=== PATIENT | male | born 1995 | race Caucasian/White ===

== ENCOUNTER 2016-11-03 17:32 | Inpatient (IN) | payer OTHER ==
[~2016-11-03] VITALS: Ht 180.3 cm; Wt 79.9 kg
[2016-11-03 19:40] VITALS: BP 108/55; PULSE 66; RESP 18; TEMP 98.1; O2SAT 100
--- NOTE | 2016-11-03 20:21 | PD ---
HPI Chief Complaint: Suicide Ideation/Attempt Time Seen by Provider: 20:17 Travel History International Travel<30 days: No Contact w/Intl Traveler<30days: No Traveled to known affect area: No History of Present Illness HPI Patient comes in under a [place] act by police after trying to commit suicide. Patient states that he been drinking and he was wanting to end his life for "multiple reasons". Patient states that he's had thoughts of this in the past but has not actually tried before. Patient states he tried today by tying a rope around his neck and the opposite end to a doorknob. Patient states his mother found him which caused him to not be able to . Patient denies any medical complaints at this time. Denies any chest pain, shortness breath, nausea, vomiting, neck pain, fevers, abdominal pain, or back pain. Patient states he is on lithium as prescribed by Calderon Rangel for depression and suicidal ideations. Denies anything making this better or worse. PFSH Past Medical History Depression: Yes Social History Alcohol Use: Yes Tobacco Use: Yes Substance Use: Yes (marijuana) Review of Systems Except as stated in HPI: all other systems reviewed are Neg Physical Exam Narrative GENERAL: Well-developed, well nourished, in no acute distress, and non-ill appearing. SKIN: Focused skin assessment warm and dry. No rope honeycutt noted on neck. HEAD: Atraumatic. Normocephalic. EYES: Pupils equal and round. EOMI. No scleral icterus. No injection or drainage. ENT: No nasal bleeding or discharge. Mucous membranes pink and moist. NECK: Trachea midline. Supple. No nuclear rigidity. CARDIOVASCULAR: Regular rate and rhythm. No murmur appreciated. RESPIRATORY: No accessory muscle use. No respiratory distress. Clear to auscultation. Breath sounds equal bilaterally. MUSCULOSKELETAL: No obvious deformities. No clubbing. No cyanosis. No edema. Full range of motion. NEUROLOGICAL: Awake and alert. No obvious cranial nerve deficits. Motor grossly within normal limits. Normal speech. PSYCHIATRIC: Appropriate mood and affect; insight and judgment normal. Data Data Orders Orders Complete Blood Count With Diff (11/03/16 20:00) Psych Screen (11/03/16 20:00) Drug Screen, Random Urine (11/03/16 20:03) Alcohol (Ethanol) (11/03/16 20:03) Salicylates (Aspirin) (11/03/16 20:03) Tylenol (Acetaminophen) (11/03/16 20:03) [place] (Li) (11/03/16 20:16) Comprehensive Metabolic Panel (11/03/16 20:42) Labs Laboratory Tests Test 11/03/16 20:42 11/03/16 20:50 Blood Urea Nitrogen 7 MG/DL Creatinine 1.00 MG/DL Random Glucose 78 MG/DL Total Protein 7.0 GM/DL Albumin 3.9 GM/DL Calcium Level 8.7 MG/DL Alkaline Phosphatase 108 U/L Aspartate Amino Transf (AST/SGOT) 15 U/L Alanine Aminotransferase (ALT/SGPT) 12 U/L Total Bilirubin 0.7 MG/DL Sodium Level 140 MEQ/L Potassium Level 3.5 MEQ/L Chloride Level 107 MEQ/L Carbon Dioxide Level 24.2 MEQ/L Anion Gap 9 MEQ/L Estimat Glomerular Filtration Rate 93 ML/MIN Salicylates Level 2.9 MG/DL Urine Opiates Screen NEG Acetaminophen Level LESS THAN 2.0 MCG/ML Urine Barbiturates Screen NEG Urine Amphetamines Screen NEG Urine Benzodiazepines Screen NEG [place] Level 0.2 MEQ/L Urine Cocaine Screen NEG Urine Cannabinoids Screen NEG Ethyl Alcohol Level 32 MG/DL White Blood Count 9.1 TH/MM3 Red Blood Count 4.24 MIL/MM3 Hemoglobin 14.3 GM/DL Hematocrit 41.9 % Mean Corpuscular Volume 98.8 FL Mean Corpuscular Hemoglobin 33.8 PG Mean Corpuscular Hemoglobin Concent 34.2 % Red Cell Distribution Width 12.7 % Platelet Count 198 TH/MM3 Mean Platelet Volume 9.4 FL Neutrophils (%) (Auto) 66.6 % Lymphocytes (%) (Auto) 24.3 % Monocytes (%) (Auto) 6.2 % Eosinophils (%) (Auto) 2.3 % Basophils (%) (Auto) 0.6 % Neutrophils # (Auto) 6.1 TH/MM3 Lymphocytes # (Auto) 2.2 TH/MM3 Monocytes # (Auto) 0.6 TH/MM3 Eosinophils # (Auto) 0.2 TH/MM3 Basophils # (Auto) 0.1 TH/MM3 CBC Comment DIFF FINAL Differential Comment MDM Medical Decision Making Medical Screen Exam Complete: Yes Emergency Medical Condition: Yes Differential Diagnosis Suicidal, homicidal, depression, lithium toxicity, alcohol intoxication, substance abuse, other Narrative Course Patient was seen and examined. Labs were obtained and reviewed. Patient medically cleared for further treatment and evaluation by psych. Final disposition per psych. Diagnosis Primary Impression: Suicidal behavior with attempted self-injury Condition: Stable Kieran Thompson Nov 03, 2016 20:21
[2016-11-03 21:22] LABS: AUTOMATED NEUTROPHIL # 6.1 TH/MM3 (1.8-7.7); BASOPHIL # 0.1 TH/MM3 (0-0.2); BASOPHIL % 0.6 % (0.0-2.0); EOSINOPHIL # 0.2 TH/MM3 (0-0.4); EOSINOPHIL % 2.3 % (0.0-4.0); HEMATOCRIT 41.9 % (39.0-51.0); HEMO FLAGS DIFF FINAL; LYMPH % 24.3 % (9.0-44.0); LYMPHOCYTE # 2.2 TH/MM3 (1.0-4.8); MEAN CELL VOLUME 98.8 FL (80.0-100.0); MEAN CORPUSCULAR HEMOGLOBIN 33.8 PG (27.0-34.0); MEAN CORPUSCULAR HGB CONC 34.2 % (32.0-36.0); MONO % 6.2 % (0.0-8.0); NEUT % 66.6 % (16.0-70.0); PLATELET COUNT 198 TH/MM3 (150-450); RED BLOOD COUNT 4.24 MIL/MM3 (4.50-5.90); RED CELL DISTRIBUTION WIDTH 12.7 % (11.6-17.2); WHITE BLOOD COUNT 9.1 TH/MM3 (4.0-11.0)
[2016-11-03 21:46] LABS: ANION GAP 9 MEQ/L (5-15); AST (GOT) 15 U/L (15-37); BICARBONATE 24.2 MEQ/L (21.0-32.0); BLOOD UREA NITROGEN 7 MG/DL (7-18); CHLORIDE 107 MEQ/L (98-107); GLOMERULAR FILTRATION RATE 93 ML/MIN (>89); POTASSIUM 3.5 MEQ/L (3.5-5.1); SODIUM (NA) 140 MEQ/L (136-145)
[2016-11-03 21:47] LABS: ALT (GPT) 12 U/L (12-78)
[2016-11-03 21:49] LABS: ACETAMINOPHEN LESS THAN 2.0 MCG/ML (10.0-30.0); ALKALINE PHOSPHATASE 108 U/L (45-117); TOTAL BILIRUBIN ADULT 0.7 MG/DL (0.2-1.0)
[2016-11-03 21:50] LABS: ALCOHOL 32 MG/DL (0-5)
[2016-11-04 07:10] VITALS: BP 110/78; PULSE 69; RESP 17; TEMP 97.9; O2SAT 99
[2016-11-04] MEDS ORDERED: LITH300C2 PO (07:38)
[2016-11-04 13:03] VITALS: BP 110/83; TEMP 97.8
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
[2016-11-04] MEDS ORDERED: MAGNESIUM HYDROXIDE SUSP 30 ML CUP PO PRN (15:00)
[2016-11-04] MEDS ORDERED: ACETAMINOPHEN 325 MG TAB PO PRN (15:00)
[2016-11-04] MEDS ORDERED: ALUMINUM/MAGNESIUM/SIMETH 30 ML CUP PO PRN (15:00)
[2016-11-04] MEDS: NICOTINE 21 MG/24 HR PATCH T-DERMAL SCH (16:00)
[2016-11-04 18:28] VITALS: BP 126/70; PULSE 63; TEMP 98.4; O2SAT 99
[2016-11-04] MEDS: LITHIUM CARBONATE 300 MG TAB PO SCH (18:59)
[2016-11-04] MEDS: hydrOXYzine HCL 50 MG TAB PO PRN (21:42)
[2016-11-05 04:44] VITALS: BP 110/58; PULSE 76; RESP 16; TEMP 98.2; O2SAT 97
[2016-11-05] MEDS: REMOVE OLD PATCH T-DERMAL SCH (09:00)
[2016-11-05] MEDS: PALIPERIDONE ER 6 MG TAB PO SCH (09:20)
[2016-11-05] MEDS: LITHIUM CARBONATE 300 MG TAB PO SCH ×3 (09:20→17:44)
[2016-11-05] MEDS: NICOTINE 21 MG/24 HR PATCH T-DERMAL SCH (09:20)
--- NOTE | 2016-11-05 09:51 | EKG ---
Date Performed: 11/05/2016 Time Performed: 09:24:43 PTAGE: 21 years EKG: SINUS BRADYCARDIA BORDERLINE ECG NO PREVIOUS TRACING DOCTOR: Efra Gallegos Interpretating Date/Time 11/05/2016 09:49:34
[2016-11-05 11:50] LABS: HDL CHOLESTEROL 56.3 MG/DL (40.0-60.0); LDL CHOLESTEROL 51 MG/DL (0-99)
--- NOTE | 2016-11-05 11:58 | HHI.PYPN ---
Subjective Remarks Patient was seen and case discussed with nursing. Patient is pleasant and cooperative with exam. Spending his time reading. Patient describes suicidal ideation for the past couple of months before admission. Patient says his recent stressors including a girl he liked put him over the edge and he had his suicide attempt. Patient continues to be depressed, feeling hopeless. He has fleeting suicidal thoughts with no intent, ideation, or plan. He is out for meals, and sleeping well. No psychomotor retardation, affect is constricted. Tolerating his medications well Objective Alert: Yes [place]: Person, Place, Date, Situation Mood: Depressed Affect: Restricted Memory Intact: Immediate (intact) Hallucinations: Other (denies) Delusions: No Delusion Type: Other (denies) Suicidal: Intent (denies), Plan (denies), Ideation (fleeting) Homicidal: Ideation (denies) Insight/Judgment Fair Labs Test 11/05/16 10:52 Triglycerides Level 189 MG/DL Cholesterol Level 145 MG/DL LDL Cholesterol 51 MG/DL HDL Cholesterol 56.3 MG/DL Cholesterol/HDL Ratio 2.57 RATIO Thyroid Stimulating Hormone 3rd Gen 0.965 uIU/ML Valproic Acid (Depakene) Level LESS THAN 3 MCG/ML Vitals/IOs Vital Signs Date Time Temp Pulse Resp B/P (MAP) Pulse Ox O2 Delivery O2 Flow Rate FiO2 11/05/16 04:44 98.2 76 16 110/58 (75) 97 11/04/16 07:10 Room Air Assessment & Plan Problem List: (1) Bipolar disorder ICD Codes: F31.9 - Bipolar disorder, unspecified Assessment & Plan Transfer patient to 2700 unit. [place] level is low, recheck in the couple days and continue titration Justification for Cont. Inpt. Patient will decompensate in a less restrictive setting Alexandro Wiggins DO Nov 05, 2016 11:58
[2016-11-05 18:00] VITALS: BP 133/61; PULSE 71; RESP 18; TEMP 99.2
[2016-11-05] MEDS: hydrOXYzine HCL 50 MG TAB PO PRN (20:15)
[2016-11-06 05:42] VITALS: BP 114/70; PULSE 65; RESP 16; TEMP 97.6; O2SAT 99
[2016-11-06] MEDS: REMOVE OLD PATCH T-DERMAL SCH (08:22)
[2016-11-06] MEDS: NICOTINE 21 MG/24 HR PATCH T-DERMAL SCH (08:22)
[2016-11-06] MEDS: LITHIUM CARBONATE 300 MG TAB PO SCH ×3 (08:23→17:52)
[2016-11-06] MEDS: PALIPERIDONE ER 6 MG TAB PO SCH (08:23)
[2016-11-06 15:46] VITALS: BP 118/65; PULSE 75; RESP 18; TEMP 98.1; O2SAT 100
[2016-11-06 16:33] LABS: HEMOGLOBIN A1a 1.1 %; HEMOGLOBIN A1b 0.7 %; HEMOGLOBIN Ao 86.4 %; HEMOGLOBIN LA1C 1.8 %; HEMOGLOBIN P3 3.3 %
--- NOTE | 2016-11-06 17:38 | HHI.PYPN ---
Subjective Remarks Patient seen in day room with nurse Flakita, chart reviewed, patient compliant medication. Patient now denies suicidality but acknowledges continued depression. This time he also denies voices or visions. He states he would like to be on an antidepressant though considering the chronicity of his past depressions and suicidal attempts. We'll start patient on Zoloft 25 mg daily Review of Systems Except as stated in HPI: all other systems reviewed are Neg Objective Alert: Yes [place]: Person, Place, Date, Situation Mood: Depressed Affect: Restricted Memory Intact: Immediate (intact) Hallucinations: Other (denies) Delusions: No Delusion Type: Other (denies) Suicidal: Intent (denies), Plan (denies), Ideation (fleeting) Homicidal: Ideation (denies) Insight/Judgment Poor Vitals/IOs Vital Signs Date Time Temp Pulse Resp B/P (MAP) Pulse Ox O2 Delivery O2 Flow Rate FiO2 11/06/16 15:46 98.1 75 18 118/65 (82) 100 11/04/16 07:10 Room Air Assessment & Plan Problem List: (1) Bipolar disorder ICD Codes: F31.9 - Bipolar disorder, unspecified Status: Acute Assessment & Plan Estimated LOS: days patient continues depressed though at this time he is not psychotic. Denying voices or visions. Did request an antidepressant will start patient on Zoloft 25 mg daily Justification for Cont. Inpt. At this time patient decompensated placed in a lower level of care Problem Qualifiers (1) Bipolar disorder: Qualified Codes: F31.4 - Bipolar disorder, current episode depressed, severe, without psychotic features Andreas Garcia MD Nov 06, 2016 17:38
[2016-11-06] MEDS ORDERED: PILL SPLITTER OTHER PRN (17:45)
[2016-11-06] MEDS: hydrOXYzine HCL 50 MG TAB PO PRN (20:38)
[2016-11-07 06:09] VITALS: BP 131/66; PULSE 69; RESP 16; TEMP 97.8; O2SAT 99
[2016-11-07] MEDS: PALIPERIDONE ER 6 MG TAB PO SCH (08:27)
[2016-11-07] MEDS: SERTRALINE HCL 50 MG TAB PO SCH (08:27)
[2016-11-07] MEDS: LITHIUM CARBONATE 300 MG TAB PO SCH ×3 (08:27→17:40)
[2016-11-07] MEDS: NICOTINE 21 MG/24 HR PATCH T-DERMAL SCH (08:28)
[2016-11-07] MEDS: REMOVE OLD PATCH T-DERMAL SCH (09:00)
--- NOTE | 2016-11-07 10:17 | HHI.PYPN ---
Subjective Remarks Patient seen in his room with counselor Phil, chart reviewed. Patient remains depressed though today he denying suicidality. I feel this is also response to the safety of the milieu. But a question his ability to remain safe in the community at this time. He denies voices or visions. Behaviors first dose of Zoloft today we'll transfer patient to 2600 today Review of Systems Except as stated in HPI: all other systems reviewed are Neg Objective Alert: Yes [place]: Person, Place, Date, Situation Mood: Depressed Affect: Restricted Memory Intact: Immediate (intact) Hallucinations: Other (denies) Delusions: No Delusion Type: Other (denies) Suicidal: Intent (denies), Plan (denies), Ideation (fleeting) Homicidal: Ideation (denies) Insight/Judgment Poor Vitals/IOs Vital Signs Date Time Temp Pulse Resp B/P (MAP) Pulse Ox O2 Delivery O2 Flow Rate FiO2 11/07/16 06:09 97.8 69 16 131/66 (87) 99 11/04/16 07:10 Room Air Assessment & Plan Problem List: (1) Bipolar disorder ICD Codes: F31.9 - Bipolar disorder, unspecified Status: Acute Assessment & Plan Estimated LOS: days patient continues depressed well denies suicidality at this time I feel but still present if prematurely discharged. For now continue treatment Justification for Cont. Inpt. At this time patient will decompensate if placed in the lower level of care Discharge Planning To be determined Problem Qualifiers (1) Bipolar disorder: Qualified Codes: F31.4 - Bipolar disorder, current episode depressed, severe, without psychotic features Andreas Garcia MD Nov 07, 2016 10:17
[2016-11-07 18:11] VITALS: BP 151/85; PULSE 58; RESP 17; TEMP 98.1; O2SAT 98
[2016-11-07] MEDS: hydrOXYzine HCL 50 MG TAB PO PRN (21:09)
[2016-11-08 05:31] VITALS: BP 133/64; PULSE 75; RESP 18; TEMP 97.8; O2SAT 95
[2016-11-08] MEDS: NICOTINE 21 MG/24 HR PATCH T-DERMAL SCH (08:41)
[2016-11-08] MEDS: REMOVE OLD PATCH T-DERMAL SCH (08:42)
[2016-11-08] MEDS: SERTRALINE HCL 50 MG TAB PO SCH (08:43)
[2016-11-08] MEDS: LITHIUM CARBONATE 300 MG TAB PO SCH ×3 (08:43→17:44)
[2016-11-08] MEDS: PALIPERIDONE ER 6 MG TAB PO SCH (08:44)
--- NOTE | 2016-11-08 12:52 | HHI.PYPN ---
Subjective Remarks Patient seen in [place] with floor staff, chart review, patient compliant medication. Patient states she is feeling better today, slept better last night. Today he has better eye contact more color in his face. He does denies suicidality today. For now continue treatment Review of Systems Except as stated in HPI: all other systems reviewed are Neg Objective Alert: Yes [place]: Person, Place, Date, Situation Mood: Depressed Affect: Restricted Memory Intact: Immediate (intact) Hallucinations: Other (denies) Delusions: No Delusion Type: Other (denies) Suicidal: Intent (denies), Plan (denies), Ideation (fleeting) Homicidal: Ideation (denies) Insight/Judgment Fair Vitals/IOs Vital Signs Date Time Temp Pulse Resp B/P (MAP) Pulse Ox O2 Delivery O2 Flow Rate FiO2 11/08/16 05:31 97.8 75 18 133/64 (87) 95 11/04/16 07:10 Room Air Assessment & Plan Problem List: (1) Bipolar disorder ICD Codes: F31.9 - Bipolar disorder, unspecified Status: Acute Assessment & Plan Estimated LOS: days patient showing some mild improvement in his depression. Denies specific suicidality today so sleep is somewhat better also. Justification for Cont. Inpt. Distant patient will decompensate the placed in a lower level of care Discharge Planning To be determined Problem Qualifiers (1) Bipolar disorder: Qualified Codes: F31.4 - Bipolar disorder, current episode depressed, severe, without psychotic features Andreas Garcia MD Nov 08, 2016 12:52
[2016-11-08 16:59] VITALS: BP 116/68; PULSE 82; RESP 16; TEMP 98; O2SAT 98
[2016-11-08] MEDS: hydrOXYzine HCL 50 MG TAB PO PRN (20:21)
[2016-11-09 05:35] VITALS: BP 116/77; PULSE 71; RESP 16; TEMP 97.6
[2016-11-09] MEDS: REMOVE OLD PATCH T-DERMAL SCH (09:00)
[2016-11-09] MEDS: LITHIUM CARBONATE 300 MG TAB PO SCH ×3 (09:24→18:40)
[2016-11-09] MEDS: SERTRALINE HCL 50 MG TAB PO SCH (09:24)
[2016-11-09] MEDS: NICOTINE 21 MG/24 HR PATCH T-DERMAL SCH (09:25)
[2016-11-09] MEDS: PALIPERIDONE ER 6 MG TAB PO SCH ×2 (10:06→20:37)
--- NOTE | 2016-11-09 13:02 | HHI.PYPN ---
Subjective Remarks Patient seen in his room with nurse ludwin Sarabia complains of poor sleep last night. He also is compliant with medications. We'll need to recheck lithium blood level in a.m. We'll switch Inve[place] to at bedtime. Patient states has not talked with his family at. Review of Systems Except as stated in HPI: all other systems reviewed are Neg Mental Status Examination Consciousness: Alert Appearance: Appropriate Speech: Unremarkable Orientation: x3 Memory: Unremarkable Thought Content: Unremarkable Thought Associations: Intact Language: Other (no problems) Fund of Knowledge: Average Hallucination Type: None Attention and Concentration: Good Suicidal Ideation: No Previous Suicide Attempts: Yes Homicidal Ideation: No Previous Homicide Attempts: No Insight: Fair Judgment: Adequate Affect: Other (good range and intensity) Mood: Euthymic (to mildly dysphoric) Motor Activity: Normal gait Results Vitals/IOs Vital Signs Date Time Temp Pulse Resp B/P (MAP) Pulse Ox O2 Delivery O2 Flow Rate FiO2 11/09/16 05:35 97.6 71 16 116/77 (90) 11/08/16 16:59 98 Assessment & Plan Problem List: (1) Bipolar disorder ICD Codes: F31.9 - Bipolar disorder, unspecified Status: Acute Assessment & Plan Estimated LOS: days patient continues depressed with sleep issues, will suicidality appears to be soft to medication adjustments above Justification for Cont. Inpt. At this time patient will decompensate the placed in a lower level of care Discharge Planning To be determined Problem Qualifiers (1) Bipolar disorder: Qualified Codes: F31.4 - Bipolar disorder, current episode depressed, severe, without psychotic features Andreas Garcia MD Nov 09, 2016 13:02
[2016-11-09 18:22] VITALS: BP 127/73; PULSE 70; RESP 16; TEMP 98.3; O2SAT 99
[2016-11-09] MEDS: hydrOXYzine HCL 50 MG TAB PO PRN (21:49)
[2016-11-10 05:59] VITALS: BP 140/71; PULSE 79; RESP 16; TEMP 97.6; O2SAT 97
[2016-11-10] MEDS: REMOVE OLD PATCH T-DERMAL SCH (09:00)
[2016-11-10] MEDS: SERTRALINE HCL 50 MG TAB PO SCH (09:15)
[2016-11-10] MEDS: NICOTINE 21 MG/24 HR PATCH T-DERMAL SCH (09:15)
[2016-11-10] MEDS: LITHIUM CARBONATE 300 MG TAB PO SCH ×3 (09:15→21:19)
--- NOTE | 2016-11-10 14:06 | HHI.PYPN ---
Subjective Remarks Patient seen with nurse No, chart review, patient compliant medications. Patients lithium level today is 0.4 on 300 mg 3 times a day, will increase to 600 mg twice a day check level on 11/13. Patient does denies suicidality at the present time, does deny voices. States he did have fairly good conversation with family. For now continue treatment Chief Complaint: patient's really depressed with plan to hang himself Review of Systems Except as stated in HPI: all other systems reviewed are Neg Mental Status Examination Appearance: Appropriate Consciousness: Alert Orientation: x4 Motor Activity: Normal gait Speech: Unremarkable Language: Adequate Fund of Knowledge: Adequate Attention and Concentration: Other (fair) Memory: Unremarkable Mood: Sad Affect: Other (slight decrease range of motion intensity) Thought Process & Associations: Intact Thought Content: Appropriate Hallucination Type: None Delusion Type: None Suicidal Ideation: No (denies at this time) Suicidal Plan: No Suicidal Intention: No Homicidal Ideation: No Homicidal Plan: No Insight: Fair Judgment: Adequate Results Labs Test 11/10/16 07:16 [place] Level 0.4 MEQ/L Vitals/IOs Vital Signs Date Time Temp Pulse Resp B/P (MAP) Pulse Ox O2 Delivery O2 Flow Rate FiO2 11/10/16 05:59 97.6 79 16 140/71 (94) 97 Assessment & Plan Problem List: (1) Bipolar disorder ICD Codes: F31.9 - Bipolar disorder, unspecified Status: Acute Assessment & Plan Estimated LOS: days patient depression is slowly lifting, he is vague about suicidality at this time. She medication adjustments above Justification for Cont. Inpt. At this time patient will decompensate with placed a lower level of care Discharge Planning Continue lithium management of adjustment, once patient stabilizes would return to his home Problem Qualifiers (1) Bipolar disorder: Qualified Codes: F31.4 - Bipolar disorder, current episode depressed, severe, without psychotic features Andreas Garcia MD Nov 10, 2016 14:06
[2016-11-10 18:00] VITALS: BP 130/79; PULSE 75; RESP 18; TEMP 98.5; O2SAT 99
[2016-11-10] MEDS: PALIPERIDONE ER 6 MG TAB PO SCH (21:19)
[2016-11-10] MEDS: hydrOXYzine HCL 50 MG TAB PO PRN (22:06)
[2016-11-11 06:05] VITALS: BP 134/77; PULSE 74; RESP 18; TEMP 98.2; O2SAT 97
[2016-11-11] MEDS: REMOVE OLD PATCH T-DERMAL SCH (09:00)
[2016-11-11] MEDS: NICOTINE 21 MG/24 HR PATCH T-DERMAL SCH (09:48)
[2016-11-11] MEDS: LITHIUM CARBONATE 300 MG TAB PO SCH ×2 (09:49→22:15)
[2016-11-11] MEDS: SERTRALINE HCL 50 MG TAB PO SCH (09:49)
--- NOTE | 2016-11-11 14:17 | HHI.PYPN ---
Subjective Remarks Pt seen and discussed with staff. He has been calm and cooperative. He denies SI /HI. He states that his mood is starting to improve and he is feeling more hopeful about future. He is complaint with medications and denies side effects. No psychosis/jesse/hypomania. Chief Complaint: depression Mental Status Examination Appearance: Appropriate Consciousness: Alert Orientation: x4 Motor Activity: Normal gait Speech: Unremarkable Language: Adequate Fund of Knowledge: Adequate Attention and Concentration: Other (fair) Memory: Unremarkable Mood: Sad Affect: Other (reactive) Thought Process & Associations: Intact Thought Content: Appropriate Hallucination Type: None Delusion Type: None Suicidal Ideation: No (denies at this time) Suicidal Plan: No Suicidal Intention: No Homicidal Ideation: No Homicidal Plan: No Insight: Fair Judgment: Adequate Results Vitals/IOs Vital Signs Date Time Temp Pulse Resp B/P (MAP) Pulse Ox O2 Delivery O2 Flow Rate FiO2 11/11/16 06:05 98.2 74 18 134/77 (96) 97 Assessment & Plan Problem List: (1) Bipolar disorder ICD Codes: F31.9 - Bipolar disorder, unspecified Status: Acute Assessment & Plan Continue current tx plan. Estimated LOS: days Justification for Cont. Inpt. monitoring for safety Problem Qualifiers (1) Bipolar disorder: Qualified Codes: F31.4 - Bipolar disorder, current episode depressed, severe, without psychotic features Fina Mendoza MD Nov 11, 2016 14:17
[2016-11-11 18:10] VITALS: BP 127/57; PULSE 70; RESP 18; TEMP 98.2; O2SAT 99
[2016-11-11] MEDS: PALIPERIDONE ER 6 MG TAB PO SCH (22:15)
[2016-11-11] MEDS: hydrOXYzine HCL 50 MG TAB PO PRN (22:38)
[2016-11-12 05:30] VITALS: BP 134/74; PULSE 78; RESP 18; TEMP 98.1; O2SAT 100
[2016-11-12] MEDS: REMOVE OLD PATCH T-DERMAL SCH (09:00)
[2016-11-12] MEDS: SERTRALINE HCL 50 MG TAB PO SCH (09:00)
[2016-11-12] MEDS: LITHIUM CARBONATE 300 MG TAB PO SCH ×2 (09:00→21:13)
[2016-11-12] MEDS: NICOTINE 21 MG/24 HR PATCH T-DERMAL SCH (09:00)
--- NOTE | 2016-11-12 13:56 | HHI.PYPN ---
Subjective Remarks Pt seen and discussed with staff. He is compliant with medications and cooperative with care, but has been withdrawn and isolative on unit today. No medication side effects. He reports decreased racing thoughts today. Chief Complaint: depression Mental Status Examination Appearance: Appropriate Consciousness: Alert Orientation: x4 Motor Activity: Normal gait Speech: Unremarkable Language: Adequate Fund of Knowledge: Adequate Attention and Concentration: Other (fair) Memory: Unremarkable Mood: Sad Affect: Other (reactive) Thought Process & Associations: Intact Thought Content: Appropriate Hallucination Type: None Delusion Type: None Suicidal Ideation: No (denies at this time) Suicidal Plan: No Suicidal Intention: No Homicidal Ideation: No Homicidal Plan: No Insight: Fair Judgment: Adequate Results Vitals/IOs Vital Signs Date Time Temp Pulse Resp B/P (MAP) Pulse Ox O2 Delivery O2 Flow Rate FiO2 11/12/16 05:30 98.1 78 18 134/74 (94) 100 Assessment & Plan Problem List: (1) Bipolar disorder ICD Codes: F31.9 - Bipolar disorder, unspecified Status: Acute Assessment & Plan Continue current tx plan. Estimated LOS: days Justification for Cont. Inpt. impairments in safety Problem Qualifiers (1) Bipolar disorder: Qualified Codes: F31.4 - Bipolar disorder, current episode depressed, severe, without psychotic features Fina Mendoza MD Nov 12, 2016 13:56
[2016-11-12 16:43] VITALS: BP 140/68; PULSE 82; RESP 18; TEMP 98.3; O2SAT 98
[2016-11-12] MEDS: hydrOXYzine HCL 50 MG TAB PO PRN (21:13)
[2016-11-12] MEDS: PALIPERIDONE ER 6 MG TAB PO SCH (21:13)
[2016-11-13 06:28] VITALS: BP 134/63; PULSE 64; RESP 18; TEMP 97.8; O2SAT 97
[2016-11-13] MEDS: REMOVE OLD PATCH T-DERMAL SCH (08:51)
[2016-11-13] MEDS: LITHIUM CARBONATE 300 MG TAB PO SCH (08:51)
[2016-11-13] MEDS: NICOTINE 21 MG/24 HR PATCH T-DERMAL SCH (08:51)
[2016-11-13] MEDS: SERTRALINE HCL 50 MG TAB PO SCH (08:51)
[2016-11-13] MEDS ORDERED: LITH300T3 PO (12:49)
[2016-11-13] MEDS ORDERED: ZOLO50TA PO (12:49)
[2016-11-13] MEDS ORDERED: INVE6TAB3 PO (12:49)
--- NOTE | 2016-11-13 12:52 | HHI.DS ---
Psychiatry Discharge Summary Inpatient Psychiatric care?: Yes Advance Directive: No Reason Not Provided: declined Mental Health AdvanceDirective: No Health Care Proxy: No Admission Admission Date Nov 04, 2016 at 15:13 Admission Diagnosis: (1) Bipolar disorder ICD Code: F31.9 - Bipolar disorder, unspecified Brief History Patient is a 21 y/o man, single, domiciled with mother, employed, with past psychiatric history of Bipolar disorder, polysubstance use disorder, prior psychiatric admissions, three prior suicide attempts who was brought in under [place] act by police after patient had been found by his mother tying a rope around his neck with opposite end to a doorknob which psychiatry was consulted for evaluation. Patient was seen in the ED, found lying on hospital bed, calm and cooperative with interview. He states tired of "dealing with these things" referring to the way people look at him, financial difficulty, feeling lonely. He states that he had a girl lose interest in him because of his illness which made him feel more depressed. He also mentions that his father he killed himself. He states that prior to coming to the hospital, his mother had seen some text messages on his phone which concerned her and went find her and later found him with rope around his neck which he states remembering EMT looking at him. Currently he states feeling "agitated" for having tried but at the same time relieved that he continues to be alive. Family psychiatric history: father recently commited suicide Past psychiatric history: previous psychiatric diagnosis of bipolar disorder, two previous psychiatric admissions (last 3-4 months ago), three previous suicide attempt (aborted or interrupted), history of self injurious behavior via cutting. Has outpatient psychiatrist at [facility], last seen 1 month ago. Current medications: [place] and unknown antidepressant Substance use history: Tobacco (+), ETOH daily about 4 beers or more, last yesterday; THC "sometimes" daily about 2-3 joints, cocaine use (last 2 weeks ago ), Xctasy last being 1 _ years ago, Xanax 5 times per week,; no prior rehab or detox in the past. Past medical history: denies Allergies: NKDA Social history: single, no children, lives tih mother, previously a contractor full time paramedic, highest education: high school Tobacco Use In Past 30 Days: No Tobacco Past 30 Days Alcohol Use: Never Hospital Course Patient's initial depression suicidality slowly diminished and resolved with his compliance with medication, hepatus patient in the milieu. Patient did have a good weekend. Denies suicidality homicidality voices or visions. States a good conversation with his family feels is related to be discharged. Patient showed consistency with his to denial of suicidality. I feel efficient maximum benefit of this hospitalization. Thus he will be discharged today to himself to follow-up [facility] g[facility] Rx 1 month Results Blood Pressure 134 / 63 Vital Signs Date Time Temp Pulse Resp B/P (MAP) Pulse Ox O2 Delivery O2 Flow Rate FiO2 11/13/16 06:28 97.8 64 18 134/63 (86) 97 Laboratory Tests Test 11/13/16 10:10 Laboratory Results Test 11/05/16 10:52 11/13/16 10:10 Cholesterol Level 145 MG/DL (120-200) HDL Cholesterol 56.3 MG/DL (40.0-60.0) Hemoglobin A1c 5.1 % (4.3-6.0) LDL Cholesterol 51 MG/DL (0-99) Triglycerides Level 189 MG/DL (42-150) Valproic Acid (Depakene) Level LESS THAN 3 MCG/ML [place] Level 1.2 MEQ/L (0.5-1.5) Summary of Procedures None done Pending results at discharge: No Medications # of Antipsychotic meds at D/C: 1 Approp Antipsych med options 1 - Minimum of three failed multiple trials of monotherapy. 2 - Documented plan to taper to monotherapy due to previous use of multiple meds OR cross-taper in progress at D/C. 3 - Documentation of augmentation of Clozapine. 4 - Justification other than those listed in allowable values 1-3, document here : Discharge Discharge Date: Nov 13, 2016 Discharge Diagnosis: (1) Bipolar disorder Diagnosis: Principal ICD Code: F31.9 - Bipolar disorder, unspecified Status: Acute Pt Condition on Discharge: Stable Discharge Disposition: Discharge Home Discharge Instructions Diet Instructions: As Tolerated, No Restrictions Activities you can perform: Regular-No Restrictions Scheduled Appointment: [facility] Appointment Date: Nov 14, 2016 Appointment Time: 730 Discharge Time > 30 minutes Mental Status Examination Appearance: Appropriate Consciousness: Alert Orientation: x4 Motor Activity: Normal gait Speech: Unremarkable Language: Adequate Fund of Knowledge: Adequate Attention and Concentration: Other (fair) Memory: Unremarkable Mood: Sad Affect: Other (reactive) Thought Process & Associations: Intact Thought Content: Appropriate Hallucination Type: None Delusion Type: None Suicidal Ideation: No (denies at this time) Suicidal Plan: No Suicidal Intention: No Homicidal Ideation: No Homicidal Plan: No Insight: Fair Judgment: Adequate Discharge/Advance Care Plan Health Problems: (1) Bipolar disorder Goals to promote your health * To prevent worsening of your condition and complications * To maintain your health at the optimal level Directions to meet your goals Take your medications as prescribed Follow your dietary instruction Follow activity as directed Keep your appointments as scheduled Take your immunizations and boosters as scheduled If your symptoms worsen call your PCP, if no PCP go to Urgent Care Center or Emergency Room For 28/08 questions related to your inpatient stay or results of tests pending at discharge, please contact Dr. Andreas Garcia at Smoking is Dangerous to Your Health. Avoid second hand smoking Problem Qualifiers (1) Bipolar disorder: Qualified Codes: F31.4 - Bipolar disorder, current episode depressed, severe, without psychotic features Andreas Garcia MD Nov 13, 2016 12:52
== END 2016-11-13 16:15 | disposition home or self-care (01) | DRG 885 ==
LOC: NEDAMB 17:32 → NEDA 11-04 15:13 → H260 11-04 18:24 → H270 11-05 11:50 → H260 11-07 10:37
PROVIDERS: ADMIT Psychiatry & Neurology Psychiatry; ATTEND Psychiatry & Neurology Psychiatry
DX: F31.9 Bipolar disorder, unspecified (principal); R45.851 Suicidal ideations; F12.90 Cannabis use, unspecified, uncomplicated; F14.90 Cocaine use, unspecified, uncomplicated; Z72.89 Other problems related to lifestyle
CPT/HCPCS: 80053; 80061; 80164; 80178; 80307; 83036; 84443; 85025; 93005